=== PATIENT | male | born 1945 | race Caucasian/White ===

== ENCOUNTER 2020-11-26 08:42 | Day surgery (SDC) | payer MEDICARE, OTHER ==
[2020-11-26] MEDS ORDERED: Fentanyl 100 MCG/2 ML VIAL ONE (09:30)
[2020-11-26] MEDS ORDERED: Naloxone HCl 0.4 mg/ml Vial ONE (09:31)
[2020-11-26] MEDS ORDERED: Lidocaine 1% PF 5 ML VIAL ONE (09:32)
[2020-11-26] MEDS ORDERED: Sodium Bicarbonate 2.5 MEQ/5 ML VIAL ONE (09:32)
[2020-11-26] MEDS ORDERED: Midazolam HCl 5 mg/5 ml Vial ONE (09:32)
[2020-11-26 09:38] VITALS: BMI 28.4
[2020-11-26 14:17] VITALS: BP 113/62; TEMP 97.3
== END 2020-11-26 12:05 | disposition home or self-care (01) ==
LOC: CSHCT 08:42
PROVIDERS: ATTEND Internal Medicine Hematology & Oncology
DX: C90.02 Multiple myeloma in relapse (principal); C79.51 Secondary malignant neoplasm of bone
CPT/HCPCS: 20225; 85097; 88305; 88311; 88313; 99152; J2250; J2310; J3010

== ENCOUNTER 2022-07-14 12:33 | Outpatient (CLI) | payer MEDICARE, OTHER ==
[~2022-07-14 12:33] MED LIST: Magnevist 469MG/ML 20 ML VIAL ONE
== END 2022-07-14 12:34 | disposition home or self-care (01) ==
LOC: CSHMRI 12:33
PROVIDERS: ATTEND Internal Medicine Hematology & Oncology
DX: M25.512 Pain in left shoulder (principal); M25.511 Pain in right shoulder; C90.00 Multiple myeloma not having achieved remission; C79.51 Secondary malignant neoplasm of bone; M19.011 Primary osteoarthritis, right shoulder; M75.111 Incomplete rotator cuff tear or rupture of right shoulder, not specified as traumatic; M25.411 Effusion, right shoulder; M65.811 Other synovitis and tenosynovitis, right shoulder; M75.122 Complete rotator cuff tear or rupture of left shoulder, not specified as traumatic; M62.512 Muscle wasting and atrophy, not elsewhere classified, left shoulder; M19.012 Primary osteoarthritis, left shoulder

== ENCOUNTER 2024-06-15 15:02 | Outpatient (CLI) | payer MEDICARE, OTHER ==
[2024-06-15 15:59] LABS: White Blood Cell (WBC) Count 8.1 10x3/uL (3.5-10.5)
[2024-06-15 16:00] LABS: Hematocrit 42.8 % (38.8-50.0); Hemoglobin 13.5 g/dL (13.5-17.5); Mean Corpuscular HGB CONC 31.5 g/dL (32.0-36.0); Mean Corpuscular Volume 104.6 fL (81.2-95.1); Mean Platelet Volume 9.2 fL (7.4-10.4); Platelet Count 145 10x3/uL (150-450); Red Blood Cell (RBC) Count 4.09 10x6/uL (4.32-5.72)
== END 2024-06-15 15:03 | disposition home or self-care (01) ==
LOC: CSHLAB 15:02
PROVIDERS: ATTEND Otolaryngology Plastic Surgery within the Head & Neck
DX: Z01.818 Encounter for other preprocedural examination (principal); J32.0 Chronic maxillary sinusitis; J32.2 Chronic ethmoidal sinusitis
CPT/HCPCS: 85027; 93005; 93010

== ENCOUNTER 2024-06-21 08:03 | Day surgery (SDC) | payer MEDICARE, OTHER ==
[2024-06-15 15:33] VITALS: BMI 23.5
[2024-06-21] MEDS ORDERED: Dexamethasone 4 mg/ml Vial ONE (11:09)
[2024-06-21] MEDS ORDERED: SUGAMMADEX SODIUM 200 MG/2 ML VIAL ONE (11:09)
[2024-06-21] MEDS ORDERED: Ondansetron PF 4 MG/2 ML Vial ONE (11:09)
[2024-06-21] MEDS ORDERED: PROPOFOL 40 ML ONE (11:09)
[2024-06-21] MEDS ORDERED: Rocuronium Bromide 10 MG/ML (10ML VIAL) ONE (11:09)
[2024-06-21] MEDS ORDERED: fentaNYL 50 mcg/mL 1 mL Vial ONE ×5 (11:10→15:11)
[2024-06-21] MEDS ORDERED: Mupirocin 2% Ointment 22 GM Tube ONE (12:55)
[2024-06-21] MEDS ORDERED: EPINEPHrine 1 MG/ML VIAL ONE (12:55)
[2024-06-21] MEDS ORDERED: CEFAZOLIN 2 GM VIAL ONE (12:55)
[2024-06-21] MEDS ORDERED: Lidocaine 1% (PF) 30 ML VIAL ONE (12:55)
[2024-06-21] MEDS ORDERED: Dexmedetomidine 200 MCG/2 ML VIAL ONE (12:58)
[2024-06-21] MEDS ORDERED: ePHEDrine Sulfate 50 MG/10 ML VIAL ONE (13:14)
[2024-06-21] MEDS ORDERED: Glycopyrrolate 0.2 MG/ML 5 ML SYRINGE ONE (13:39)
[2024-06-21] MEDS ORDERED: Esmolol 100 MG/10 ML VIAL ONE (14:14)
[2024-06-21] MEDS ORDERED: Acetaminophen 500 MG TAB ONE (15:45)
== END 2024-06-21 16:30 | disposition home or self-care (01) ==
LOC: CSHSDC 08:03
PROVIDERS: ATTEND Otolaryngology Plastic Surgery within the Head & Neck
PROC: 09TV8ZZ Resection of Left Ethmoid Sinus, Via Natural or Artificial Opening Endoscopic (ICD-10-PCS; principal; 2024-06-21)
PROC: 09TR8ZZ Resection of Left Maxillary Sinus, Via Natural or Artificial Opening Endoscopic (ICD-10-PCS; 2024-06-21)
DX: J32.0 Chronic maxillary sinusitis (principal); J32.2 Chronic ethmoidal sinusitis; G20.A1 Parkinson's disease without dyskinesia, without mention of fluctuations; Z79.899 Other long term (current) drug therapy; Z98.890 Other specified postprocedural states; Z79.82 Long term (current) use of aspirin
CPT/HCPCS: 31254; 31267; 61782; 87070; 87075; 87102; 87205; 87206; J0171; J1100; J1642; J2405; J2704; J3010; 87077

== ENCOUNTER 2024-06-22 07:32 | Emergency (ER) | payer MEDICARE, OTHER ==
[2024-06-22] MEDS ORDERED: Prochlorperazine 10 MG/2 ML VIAL ONE (07:54)
[2024-06-22 08:14] LABS: #Basophils 0.04 10x3/uL (0.0-0.2); #Monocytes 0.82 10x3/uL (0.0-1.1); #Neutrophils 9.46 10x3/uL (1.5-8.4); %Basophils 0.4 % (0.0-2.0); %Lymphocytes 6.5 % (18.0-47.0); %Monocytes 7.3 % (0.0-10.0); %Neutrophils 83.8 % (40.0-75.0); Hemoglobin 16.5 g/dL (13.5-17.5); Mean Corpuscular HGB CONC 32.4 g/dL (32.0-36.0); Mean Corpuscular Hemoglobin 33.1 pg (27.0-33.0); Mean Corpuscular Volume 102.2 fL (81.2-95.1); Mean Platelet Volume 10.4 fL (7.4-10.4); Platelet Count 183 10x3/uL (150-450); RBC Distribution Width 13.9 % (11.5-14.5); Red Blood Cell (RBC) Count 4.99 10x6/uL (4.32-5.72); White Blood Cell (WBC) Count 11.3 10x3/uL (3.5-10.5)
[2024-06-22 08:26] LABS: ALT (SGPT) 10 U/L (8-55); AST (SGOT) 9 U/L (5-34); Albumin 4.4 g/dL (3.4-4.8); Alkaline Phosphatase 117 U/L (40-110); Anion Gap 20 mmol/L (10-20); BUN (Urea Nitrogen) 23 mg/dL (8.4-25.7); Bilirubin, Total 1.1 mg/dL (0.2-1.2); Calc. Creatinine Clearance 0 mL/min (70-130); Calcium 10.7 mg/dL (7.8-10.44); Carbon Dioxide 29 mmol/L (23-31); Chloride 97 mmol/L (98-107); Estimated GFR 87; Globulin 2.5 g/dL (2.4-3.5); Glucose 152 mg/dL (83-110); Lipase 17 U/L (8-78); Magnesium 1.9 mg/dL (1.6-2.6); Potassium 4.4 mmol/L (3.5-5.1); Protein, Total 6.9 g/dL (5.8-8.1); Sodium 142 mmol/L (136-145)
[2024-06-22 08:31] LABS: Troponin I Less than 0.010 ng/mL (< 0.028)
[2024-06-22 08:34] LABS: PTT 24.1 sec (22.0-33.0)
[2024-06-22] MEDS ORDERED: Iopamidol 370 76% 100 ML VIAL ONE (10:22)
== END 2024-06-22 11:32 | disposition home or self-care (01) ==
LOC: CSHERS 07:32
DX: R11.2 Nausea with vomiting, unspecified (principal); G20.A1 Parkinson's disease without dyskinesia, without mention of fluctuations; I47.20 Ventricular tachycardia, unspecified
CPT/HCPCS: 70487; 74177; 80053; 83690; 83735; 84484; 85025; 85610; 85730; 93005; 96361; 96374; 99284; J0780; Q9967

== ENCOUNTER 2025-06-27 16:02 | Emergency (ER) | payer MEDICARE, OTHER ==
[2025-06-27] MEDS ORDERED: Lidocaine/Transparent Dressing 1 EACH KIT ONE (17:30)
[2025-06-27 18:27] LABS: Glucose, Urine (Dipstick) Normal (Negative); Leukocyte 500 (Negative); Protein, Urine (Dipstick) 100 mg/dl (Neg-Trace); Specific Gravity, Urine 1.025 (1.005-1.030)
[2025-06-27 18:46] LABS: ALT (SGPT) Less than 4 U/L (Less than 45); AST (SGOT) 16 U/L (11-34); Albumin 3.4 g/dL (3.1-4.5); Alkaline Phosphatase 106 U/L (40-110); Anion Gap 12 mmol/L (10-20); BUN (Urea Nitrogen) 19 mg/dL (8.4-25.7); Bilirubin, Total 0.4 mg/dL (0.3-1.2); Calc. Creatinine Clearance 0 mL/min (70-130); Calcium 9.0 mg/dL (7.8-10.44); Carbon Dioxide 25 mmol/L (23-31); Chloride 105 mmol/L (98-107); Globulin 2.7 g/dL (2.4-3.5); Glucose 98 mg/dL (83-110); Potassium 3.2 mmol/L (3.5-5.1); Sodium 139 mmol/L (136-145)
[2025-06-27 18:58] LABS: #Basophils Less than 0.03 10x3/uL (0.0-0.2); #Eosinophils 0.03 10x3/uL (0.0-0.5); #Monocytes 0.80 10x3/uL (0.0-1.1); #Neutrophils 3.91 10x3/uL (1.5-8.4); %Basophils 0.3 % (0.0-2.0); %Eosinophils 0.5 % (0.0-6.0); %Lymphocytes 17.6 % (18.0-47.0); %Monocytes 13.8 % (0.0-10.0); %Neutrophils 67.5 % (40.0-75.0); Anisocytosis SLIGHT = 6-15 cells (100X) (0-5/hpf); Hematocrit 39.3 % (38.8-50.0); Hemoglobin 13.0 g/dL (13.5-17.5); MDiff Complete? YES; Mean Corpuscular Hemoglobin 31.6 pg (27.0-33.0); Mean Corpuscular Volume 95.4 fL (81.2-95.1); Ovalocytes SLIGHT = 2-5 cells (100X) (0-1/hpf); Platelet Adequacy Comment Appears Decreased; Platelet Count 119 10x3/uL (150-450); Red Blood Cell (RBC) Count 4.12 10x6/uL (4.32-5.72); White Blood Cell (WBC) Count 5.80 10x3/uL (3.5-10.5)
[2025-06-27 19:20] LABS: CAUTI Indications for Culture Alt mental st,lethar; WBC/HPF Greater than 50 HPF (0-3)
[2025-06-27 19:21] LABS: Bacteria/HPF 3+ HPF (None Seen); Mucous/LPF 2+ LPF (<2+)
[2025-06-27 19:23] LABS: Urine Culture Reflex Yes Yes
[2025-06-27] MEDS ORDERED: cefTRIAXone (ROCEPHIN) 1 GM VIAL ONE (19:46)
== END 2025-06-27 20:09 | disposition home or self-care (01) ==
LOC: CSHERS 16:02
DX: N39.0 Urinary tract infection, site not specified (principal); R29.700 NIHSS score 0
CPT/HCPCS: 71045; 80053; 81001; 85025; 87086; 93005; 96372; 96374; J0696; J1642